=== PATIENT | female | born 1975 | race Caucasian/White ===

== ENCOUNTER 2018-09-15 22:06 | Emergency (ER) | payer BC ==
--- NOTE | 2018-09-16 13:02 | ULT ---
PRELIMINARY REPORT/[facility]/EMERGENTY AFTER-HOURS PROCEDURE US , Transvaginal and US Duplex Artery or Vein, Ovaries, Limited EXAM DATE/TIME: 09/15/2018 11:36 PM CLINICAL HISTORY: 42 years old, female; Other: Llq pain; Gestational age or lmp: 6wks; ; Prior surgery; Surgery date: 6+ months; Surgery type: TECHNIQUE: Imaging protocol: Real-time transvaginal obstetrical ultrasound of the maternal pelvis and a first tr ester with image documentation. Transvaginal imaging was used for better evaluation of th e fetus and adnexa. Real-time duplex ultrasound scan of the arterial or venous flow of the ovaries wi th B-mode, color Doppler flow and spectral waveform analysis, Limited Duplex. COMPARISON: No relevant prior studies available. FINDINGS: Transvaginal obstetrical ultrasound was performed. Duplex ultrasound scan with color Doppler flow and spectral waveform analysis was also performed for evaluation of pelvic and ovarian blood flow and to rsion. Gestation: Single, living intrauterine gestation. heart rate 114 beats per minute. CRL 0.62 cm, 6w3d. Placenta/amniotic fluid: Cannot be adequately evaluated due to the early gestational age. Unremarkable as visualized. Uterus/cervix: No acute findings. No myometrial mass. Right adnexa: No acute findings. No mass. Normal duplex of the ovary. No evidence of torsion. Left adnexa: Left ovarian probable corpus luteal cyst. Normal duplex of the ovary. No evidence of tor polo. Free fluid: Trace. IMPRESSION: Single viable intrauterine . No acute findings. Thank you for allowing us to participate in the care of your patient. Dictated and Authenticated by: Jhonatan Espinosa MD 09/16/2018 1:09 AM Central Time ([place] & [place]) FINAL REPORT PELVIC ULTRASOUND: HISTORY: Pelvic pain. COMPARISON: None. TECHNIQUE: Transabdominal and endovaginal imaging of the pelvis is performed. Ovaries are interrogated with gra y scale, color flow, Doppler imaging, and spectral waveform analysis. FINDINGS: There is a single intrauterine gestation with heart tones. Gestational age by bill moore's slough-rump length is 6 weeks 3 days. heart tones are at a rate of 114 b.p.m. Left ovarian corpus luteal cyst is noted. There is vascular flow to both ovaries. IMPRESSION: This report is in agreement with the preliminary report by [facility]. Single intrauterine gestation with f etal heart tones. POS: OFF
== END 2018-09-16 01:24 ==
LOC: ERS 22:06
DX: O20.0 Threatened abortion (principal); Z3A.01 Less than 8 weeks gestation of pregnancy
CPT/HCPCS: 76856; 96360